=== PATIENT | male | born 1990 | race Caucasian/White ===

== ENCOUNTER 2021-04-04 10:56 | Inpatient (IN) | payer BC ==
[~2021-04-04] VITALS: Ht 170.2 cm; Wt 91.6 kg
--- NOTE | ~2021-04-04 | O ---
[facility] [place] [address] OPERATIVE REPORT Name: MAGGIE TOMPKINS Room #: 433-I ADM IN M.R.#: [id number] Admission: 04/04/21 Attend Phys: Marty Desir, Discharge: Date of : 89 Report #: [id number] THIS REPORT FOR: cc: Marco A Mullins MD, David P. MD Patterson,Marty Puente MD ~ DOC #: [id number] Marty Desir MD DATE OF SERVICE: 04/04/2021 PREOPERATIVE DIAGNOSIS: Acute appendicitis. POSTOPERATIVE DIAGNOSIS: Acute appendicitis. OPERATION: Laparoscopic appendectomy. SURGEON: Marty Desir MD. ANESTHESIA: General. ESTIMATED BLOOD LOSS: Minimal. SPECIMENS: Appendix. DESCRIPTION OF PROCEDURE: After informed consent was obtained, the patient was brought to the operating room and placed supine. SCDs were placed and working. Preoperative antibiotics were administered. General anesthesia was induced. The abdomen was prepped and draped in the usual sterile fashion. A 10-mm incision was made below the umbilicus. Fascia was incised and a trocar was placed. Pneumoperitoneum was established. Right upper quadrant and left lower quadrant 5-mm trocars were placed. The patient was placed with the left side tilted down. The appendix was identified. It was inflamed consistent with appendicitis. A window was made in the mesoappendix. There was excellent hemostasis. The appendix was placed into an Endopouch and removed. The fascia was closed with a [id number]-ovafg 0 Vicryl. Skin was closed with 4-0 Monocryl. Incisions were dressed with Steri-Strips. COMPLICATIONS: None. DISPOSITION: The patient was taken to recovery in satisfactory condition. MD ROLLY Storey/SUNITA [address] [address] OPERATIVE REPORT Name: MAGGIE TOMPKINS Room #: 433-I [facility] IN [facility]#: [id number] Admission: 04/04/21 Attend Phys: Marty Desir, Discharge: Date of : 89 Report #: [id number] By: [id number] Marty Desir MD /nel
[2021-04-04 11:02] VITALS: BP 137/92
[2021-04-04 11:27] LABS: ABSOLUTE NEUTROPHILS 15.6 thou/uL (1.4-8.2); BASOPHILS 0.5 % (0.0-2.0); EOSINOPHILS 2.1 % (0.0-3.0); HEMATOCRIT 45.2 % (42.0-52.0); HEMOGLOBIN 15.5 gm/dL (14.0-18.0); LYMPHOCYTES 9.7 % (24.0-44.0); MCH 29.2 pg (26.0-34.0); MCHC 34.2 g/dL (28.0-37.0); MCV 85.4 fL (80.0-100.0); MONOCYTES 5.7 % (1.0-8.0); PLATELET COUNT 203 thou/uL (150-400); RBC 5.29 mil/uL (4.50-6.00); RDW 13.6 % (10.5-14.5)
[2021-04-04 11:36] LABS: CALCIUM 8.7 mg/dL (8.5-10.1); CREATININE 0.8 mg/dL (0.7-1.3); POTASSIUM 3.9 mmol/L (3.5-5.1)
[2021-04-04 11:42] LABS: ALBUMIN 3.6 g/dL (3.4-5.0); TOTAL BILIRUBIN 0.6 mg/dL (0.2-1.0); TOTAL PROTEIN 7.1 g/dL (6.4-8.2)
[2021-04-04 13:01] LABS: URINE BILIRUBIN NEGATIVE (Negative); URINE BLOOD NEGATIVE (Negative); URINE CLARITY CLEAR; URINE COLOR YELLOW; URINE GLUCOSE-RANDOM* NEGATIVE (Negative); URINE KETONES NEGATIVE (Negative); URINE LEUKOCYTES-REFLEX NEGATIVE (Negative); URINE NITRITE-REFLEX NEGATIVE (Negative); URINE PROTEIN (DIPSTICK) NEGATIVE (Negative); URINE SPECIFIC GRAVITY <= 1.005 (1.005-1.035); URINE UROBILINOGEN 0.2 E.U./dl (0.2-1.0)
[2021-04-04 14:54] VITALS: BP 125/75
--- NOTE | 2021-04-04 15:00 | NUR ---
PT AND SPOUSE UPDATED ON PLAN TO GO TO FLOOR PRIOR TO SX
[2021-04-04 15:05] VITALS: BP 125/75
--- NOTE | 2021-04-04 15:59 | NUR ---
ASSUMED PT CARE FROM ED AT 1530. PT IS ALERT & ORIENTED X4. PT IS ROOM AIR. PT RATED PAIN 2/10 ON RLQ. PT NO C/O OF NAUSEA AND VOMITING. PT IS NPO TODAY. FINISHED ADMISSION. FAMILY AT THE BEDSIDE. PT WILL HAVE SURGERY TODAY. PT ON THE BED, BED ON THE LOWEST POSITION, SIDE RAILS UP, CALL LIGHT WITHIN REACH. WILL CONTINUE TO MONITOR PT. FOLLOW POC.
[2021-04-04 16:53] VITALS: BP 112/77
[2021-04-04 19:30] VITALS: BP 129/84
--- NOTE | 2021-04-05 03:26 | NUR ---
ASSUMED CARE OF PT AT 1900. PT IS A/O X4 AND IS UP SBA WITH IV POLE. OTHERWISE UP AD LORY. C/O ABDOMINAL PAIN. PRN PAIN MEDICATION GIVEN. PT IRRITABLE AND STATES HE WANTED HIS CHEWING TOBACCO. NURSE OFFERED NICOTINE PATCH AND PT REFUSED. PT IS ON ROOM AIR. VOIDS PER TOILET. LBM 6/8. STATES THIS EARLY AM HE IS FEELING BETTER WITH LESS PAIN. CALL LIGHT IS WITHIN REACH. CALLS OUT APPROPRIATELY. WILL CONTINUE TO MONITOR.
[2021-04-05 07:50] VITALS: BP 139/84
[2021-04-05] MEDS ORDERED: NORCO5 PO (10:43)
[2021-04-05 11:29] VITALS: BP 139/84
--- NOTE | 2021-04-05 12:07 | NUR ---
RN went over all discharge education, all questions answered, IV out, and will be discharged to home.
--- NOTE | 2021-04-10 19:06 | PATH ---
[facility] [place] [address] PATHOLOGY RPT PROCEDURE Name: MAGGIE TOMPKINS Room #: 433-I [facility] IN M.R.#: [id number] Admission: 04/04/21 Date of : 89 Discharge: 04/05/21 Report #: [id number] Path Case #: [id number] [facility] Accession Number: [id number] . 01 Material submitted: . appendix - APPENDIX . 01 Clinical history: . LAPAROSCOPIC APPENDECTOMY APPENDICITIS . 02 Diagnosis: Appendix, appendectomy: - Marked acute and chronic appendicitis. - Acute serositis. (IUV:cruz; 04/10/2021) QMS 04/10/2021 1416 Local . 02 Electronically signed: . Jessa Guajardo MD, Pathologist NPI- [id number] . 01 Gross description: . Fixative: Formalin Labeled: Appendix Appendix length: 8.2 cm Appendix diameter: 1.4 cm Mesoappendix: 7.6 x 3.1 x 2.3 cm Proximal margin: Closed with a staple line Serosa: Vicente-red with focal hemorrhage and vicente-white purulent exudate Cut surface: Displays a vicente-brown fecalith in the proximal appendix measuring 1.8 x 0.6 cm Luminal diameter: Ranges from 0.2 to 0.7 cm Perforation: No Lesions/abnormalities: Previously described fecalith A1 Proximal margin (inked black) and distal tip, bisected A2 Mid appendix ([facility] [place]; 04/07/2021[place] [facility] 04/07/2021 1450 Local . 02 Microscopic: . . . 02 Pathologist provided ICD-10: K35.80, K65.8 . 02 CPT . [id number] [address] [address] PATHOLOGY RPT PROCEDURE Name: GARLANDSANGITAMAGGIE Room #: [address] [place] [address] [place] .R.#: [id number] Admission: 04/04/21 Date of : 89 Discharge: 04/05/21 Report #: [id number] Path Case #: [id number] Specimen Comment: A courtesy copy of this report has been sent to [phone] Specimen Comment: [phone] Specimen Comment: Report sent to / DR JIMENEZ Performed at: [address], [place], [place] [id number] MD Norman Kaplan MD Phone: [phone] Performed at: [address] [id number] MD Jessa Guajardo MD Phone: [phone]
== END 2021-04-05 12:31 | disposition home or self-care (01) | DRG 343 ==
LOC: ER 10:56 → EROBS 12:45 → 4S 15:10
PROVIDERS: Physician Assistant; ADMIT Surgery; ATTEND Surgery
PROC: 0DTJ4ZZ Resection of Appendix, Percutaneous Endoscopic Approach (ICD-10-PCS; principal; 2021-04-04)
DX: K35.80 Unspecified acute appendicitis (principal); Z20.822 Contact with and (suspected) exposure to COVID-19
CPT/HCPCS: 10195; 50010; 50101; 50411; 50555; 50739; 50740; 51489; 52265; 52266; 53307; 53312; 53314; 56525; 58574; 62110; 62900; 70005